=== PATIENT | female | born 1970 | race Caucasian/White ===

== ENCOUNTER 2023-09-11 12:31 | Outpatient (CLI) | payer BC ==
--- NOTE | 2023-09-11 12:55 | XRAY Report ---
PROCEDURE: Hand 2 View RT INDICATIONS: CONTUSION ON RIGHT HAND TECHNIQUE: 2 views of the hand(s) acquired. COMPARISON: None. FINDINGS: Bones: Old healed fracture involving fifth metacarpal shaft is seen. No gross acute right hand fract ure or dislocation. Mild right hand and wrist joint osteoarthritic changes are seen. No suspicious ayesha ny lesions. Soft tissues: No suspicious soft tissue calcifications or masses. IMPRESSION: Old healed right fifth metacarpal shaft fracture. No gross acute right hand fracture or dislocation. 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 Reviewed by: Kevin Robb MD on 09/11/2023 12:54 PM PST Approved by: Kevin Robb MD on 09/11/2023 12:54 PM PST Station ID: [id number]
== END 2023-09-11 23:59 | disposition home or self-care (01) ==
LOC: DI.N 12:31
PROVIDERS: ATTEND Nurse Practitioner
DX: M19.041 Primary osteoarthritis, right hand (principal); M19.031 Primary osteoarthritis, right wrist